=== PATIENT | male | born 1955 | race Caucasian/White ===

== ENCOUNTER 2022-11-18 06:05 | Day surgery (SDC) | payer MEDICARE ==
[2022-11-16 10:42] VITALS: BMI 28.1
[~2022-11-18 06:05] MED LIST: Enoxaparin 25 MG, EPINEPHrine 0.3 MG in Ophthalmic Irrigation Solution 500 ML FS SCH
[2022-11-18] MEDS ORDERED: PHENYLephrine 2.5% Ophth Soln 15 ml Bottle ONE ×2 (06:13)
[2022-11-18] MEDS ORDERED: Cyclopentolate 0.5% Opth Drops 15 ML BOT ONE (06:14)
[2022-11-18] MEDS ORDERED: PROPOFOL 20 ML ONE (06:47)
[2022-11-18] MEDS ORDERED: fentaNYL 50 mcg/mL 1 mL Vial ONE (06:47)
[2022-11-18] MEDS ORDERED: Midazolam HCl 2 mg/2 ml Vial ONE (06:47)
[2022-11-18] MEDS ORDERED: Lidocaine 4% PF 5 ML AMP ONE (07:01)
[2022-11-18] MEDS ORDERED: Indocyanine Green 25 MG/10 ML VIAL ONE (07:01)
[2022-11-18] MEDS ORDERED: Maxitrol 0.1% Opth Oint 3.5 GM TUBE ONE (07:01)
[2022-11-18] MEDS ORDERED: Triamcinolone 40 MG/ML VIAL ONE (07:01)
[2022-11-18] MEDS ORDERED: Bupivacaine 0.75% 10 ML VIAL ONE (07:01)
== END 2022-11-18 08:28 | disposition home or self-care (01) ==
LOC: SDC 06:05
PROVIDERS: ATTEND Ophthalmology Retina Specialist
PROC: 08T43ZZ Resection of Right Vitreous, Percutaneous Approach (ICD-10-PCS; principal; 2022-11-18)
DX: H35.371 Puckering of macula, right eye (principal)
CPT/HCPCS: 67041; J3010; J0171; J1650; J2250; J2704; J3301; J3490